=== PATIENT | female | born 1960 | race Caucasian/White ===

== ENCOUNTER → 2016-08-08 | Outpatient (CLI) | payer BC ==
[2016-08-08 17:21] LABS: Anion Gap 12 mmol/L; Blood Urea Nitrogen 13 mg/dL (7-17); Carbon Dioxide 28 mmol/L (22-30); Chloride 100 mmol/L (98-107); Non-African American GFR(MDRD) >60 (>60 ml/min/1.73 sqM); Potassium 4.2 mmol/L (3.5-5.1); Sodium 140 mmol/L (137-145)
== END | disposition home or self-care (01) ==
LOC: LABWHC1 16:26
PROVIDERS: ATTEND Internal Medicine Cardiovascular Disease
DX: I11.0 Hypertensive heart disease with heart failure (principal); I50.32 Chronic diastolic (congestive) heart failure
CPT/HCPCS: 36415; 80051; 82565; 84520

== ENCOUNTER → 2017-07-07 | Outpatient (CLI) | payer BC ==
--- NOTE | 2017-07-09 07:13 | MM ---
Reason for exam: screening (asymptomatic). Last mammogram was performed 2 years and 9 months ago. History: Patient is postmenopausal and is nulliparous. Family history of breast cancer in maternal aunt, breast cancer in cousin, premenopausal breast cancer in mother, and breast cancer in sister. Benign excisional biopsy of the right breast, June 10, 2001. Physical Findings: A clinical breast exam by your physician is recommended on an annual basis and results should be correlated with mammographic findings. MG 3D Screening Mammo W/Cad Bilateral CC and MLO view(s) were taken. Prior study comparison: October 19, 2014, bilateral MG screening mammo w CAD. May 28, 2013, left breast ultrasound work-up. May 19, 2013, bilateral digital screening mammo w/CAD. There are scattered fibroglandular densities. There is a benign oval stable mass in the right breast upper outer quadrant middle depth back to 2014. No suspicious abnormality. No significant changes when compared with prior studies. ASSESSMENT: Benign, BI-RAD 2 RECOMMENDATION: Routine screening mammogram of both breasts in 1 year.
== END | disposition home or self-care (01) ==
LOC: RADMAMWWP 15:52
PROVIDERS: ATTEND Family Medicine
DX: Z12.31 Encounter for screening mammogram for malignant neoplasm of breast (principal)
CPT/HCPCS: 77063; 77067

== ENCOUNTER → 2018-01-29 | Outpatient (CLI) | payer BC ==
--- NOTE | 2018-01-29 10:25 | US ---
EXAMINATION TYPE: US abdomen complete DATE OF EXAM: 01/29/2018 COMPARISON: CT abdomen and pelvis 10/09/2015, US 05/22/2014 CLINICAL HISTORY: R10.32 left lower quadrant pain. EXAM MEASUREMENTS: Liver Length: 14.9 cm Gallbladder Wall: Surgically absent cm CBD: 0.5 cm Spleen: 9.3 cm Right Kidney: 10.9 x 4.8 x 4.7 cm Left Kidney: 9.8 x 6.0 x 5.4 cm Pancreas: Obscured by bowel gas Liver: Heterogeneous, coarse echotexture. Gallbladder: Surgically absent Evidence for sonographic William's sign: No CBD: wnl Spleen: wnl Right Kidney: No hydronephrosis or masses seen Left Kidney: Echogenic foci visualized mid pole measuring 0.4 cm. Nodular contour Upper IVC: wnl Abd Aorta: wnl No abnormality visualized in the LLQ, patient's area of pain Pancreas is obscured by overlying bowel gas on images saved. No aneurysmal change to abdominal aorta is present.Visualized liver is heterogeneously hyperechoic consistent with fatty infiltration as seen on CT. Technologist perez vague 1.1 cm hyperechoic area near gallbladder fossa likely reflecting mor e prominent focal fat. Evaluation for focal masses is suboptimal due to the heterogeneity. No suspici ous solid or cystic masses are clearly seen on images saved. Gallbladder noted surgically absent. Gina pect small calculus upper to mid pole level left kidney 4 mm or smaller in size which appears to vera elate with 2016 CT. IMPRESSION: No significant abnormality is seen at end of study left lower quadrant at site of pain. D iffuse fatty infiltration of liver is redemonstrated. Left-sided nephrolithiasis noted.
== END | disposition home or self-care (01) ==
LOC: RADUSWWP 09:32
PROVIDERS: ATTEND Family Medicine
DX: K76.0 Fatty (change of) liver, not elsewhere classified (principal); N20.0 Calculus of kidney
CPT/HCPCS: 76700

== ENCOUNTER → 2018-02-13 | Outpatient (CLI) | payer BC ==
--- NOTE | 2018-02-13 14:28 | CT ---
EXAMINATION TYPE: CT abdomen pelvis wo con DATE OF EXAM: 02/13/2018 COMPARISON: None HISTORY: Calculus of kidney CT DLP: 923.8 mGycm Examination of the solid and hollow viscera is limited given the lack of contrast. FINDINGS: LUNG BASES: No evidence for nodule. No evidence for infiltrate. LIVER/GB: Cholecystectomy clips are in place. No space-occupying hepatic lesion. PANCREAS: No pancreatic mass identified. No inflammatory process seen. SPLEEN: No evidence for splenomegaly. No intrasplenic lesions seen. ADRENALS: No adrenal nodules identified. No evidence for thickening. KIDNEYS: No evidence for renal mass. 3.8 mm left renal calculus is nonobstructing. No additional calc asia seen. No hydronephrosis. BOWEL: Appendix has a normal appearance. No evidence of bowel obstruction. No inflammatory process. Lymph nodes: No evidence for adenopathy greater than 1 cm. Abdominal aorta: Atheromatous changes seen. No evidence for aneurysm. Genital organs: No significant abnormality. Other: No significant abnormality. IMPRESSION: 1. Nonobstructing left-sided nephrolithiasis.
== END | disposition home or self-care (01) ==
LOC: RADCTMAIN 13:52
PROVIDERS: ATTEND Family Medicine
DX: N20.0 Calculus of kidney (principal)
CPT/HCPCS: 74176

== ENCOUNTER 2022-05-16 10:17 | Emergency (ER) | payer BC ==
[2022-05-16 11:05] VITALS: TEMP 98.6
[2022-05-16] MEDS ORDERED: SODIUM CHLORIDE 0.9% 1,000 ML IV ONE (12:20)
[2022-05-16] MEDS ORDERED: MECLIZINE 12.5 MG TAB PO STA (12:21)
[2022-05-16] MEDS ORDERED: METOCLOPRAMIDE 5 MG/ML 2 ML VIAL IVP STA (12:21)
--- NOTE | 2022-05-16 12:29 | ED ---
General Adult HPI - General Chief complaint: Dizziness Stated complaint: Dizziness Time Seen by Provider: 05/16/22 11:08 Source: patient, family, RN notes reviewed Mode of arrival: wheelchair Limitations: no limitations - History of Present Illness Initial comments: Patient is a pleasant 61-year-old female presenting to the emergency department with concerns for dizziness. Onset of symptoms was yesterday. Patient does have history of similar symptoms previously over has not lasted this long. No headache. No weakness. No confusion. Patient does feel like she is spinning. Symptoms do worsen with upright position and head movements. - Related Data Home Medications Medication Instructions Recorded Confirmed Desvenlafaxine Succinate [Pristiq] 100 mg PO HS 07/26/15 05/16/17 Ergocalciferol [Vitamin D2 50,000 unit PO SA 07/26/15 05/16/17 (DRISDOL)] Eszopiclone [Lunesta] 3 mg PO HS 07/26/15 05/16/17 Desvenlafaxine Succinate [Pristiq] 50 mg PO HS 05/29/16 05/16/17 LORazepam [Ativan] 1 mg PO TID PRN 05/29/16 05/16/17 Pantoprazole Sodium [Protonix] 40 mg PO DAILY 05/29/16 05/16/17 Furosemide [Lasix] 40 mg PO DAILY 05/16/17 05/16/17 Losartan [Cozaar] 50 mg PO DAILY 05/16/17 05/16/17 Potassium Chloride [K-Tab ER] 20 meq PO HS 05/16/17 05/16/17 busPIRone HCl [Buspar] 15 mg PO BID 05/16/17 05/16/17 Previous Rx's Medication Instructions Recorded Metoprolol Tartrate [Lopressor] 25 mg PO BID #60 tab 05/17/17 Metoclopramide HCl [Reglan] 10 mg PO Q6HR PRN #15 tablet 05/16/22 Allergies Allergy/AdvReac Type Severity Reaction Status Date / Time No Known Allergies Allergy Verified 05/16/22 11:05 Review of Systems ROS Statement: Those systems with pertinent positive or pertinent negative responses have been documented in the HPI. ROS Other: All systems not noted in ROS Statement are negative. Constitutional: Denies: fever Eyes: Denies: eye pain ENT: Denies: ear pain Respiratory: Denies: cough Cardiovascular: Denies: chest pain Endocrine: Denies: fatigue Gastrointestinal: Denies: abdominal pain Genitourinary: Denies: dysuria Musculoskeletal: Denies: back pain Skin: Denies: rash Neurological: Reports: as per HPI, vertigo. Denies: headache, weakness, numbness, paresthesias, confusion Past Medical History Past Medical History: Chest Pain / Angina, Heart Failure, Fibromyalgia, GERD/Reflux, Hypertension, Sleep Apnea/CPAP/BIPAP Additional Past Medical History / Comment(s): TRACHIAL BRONCHIAL MALASIA, FATTY LIVER, SHINGLES 2014, ECZEMA, SLEEP APNEA/NO CPAP MACHINE USE LATELY, LOW BACK PAIN WITH BILATERAL SCIATIC NERVE PAIN, INSOMNIA IMPROVED WITH RX. History of Any Multi-Drug Resistant Organisms: None Reported Past Surgical History: Bladder Surgery, Cholecystectomy, Hysterectomy, Orthopedic Surgery Additional Past Surgical History / Comment(s): RT KNEE SCOPE, RT HAND FIRST 2 FINGERS HAD RODS PLACED-BUT PT HAD REACTION TO THE METAL AND RODS WERE REMOVED. BLADDER SUSPENSION. COLONOSCOPY. MULTIPLE BRONCOSCOPIES Past Anesthesia/Blood Transfusion Reactions: Family History of Problems w/ Anesthesia, Motion Sickness, Postoperative Nausea & Vomiting (PONV) Additional Past Anesthesia/Blood Transfusion Reaction / Comment(s): PATIENT AND FAMILY HX PONV WITH ANESTHESIA Past Psychological History: Anxiety, Depression Smoking Status: Never smoker Past Alcohol Use History: Occasional Past Drug Use History: None Reported - Past Family History Mother Family Medical History: Cancer, Diabetes Mellitus, Myocardial Infarction ([place]) Additional Family Medical History / Comment(s): BREAST CA, LEUKEMIA. HEART PROBLEMS- SEVERAL STENTS, HEART ATTACK, Polio Father Family Medical History: Cancer Additional Family Medical History / Comment(s): PACEMAKER. COLON CA, CABG General Exam Limitations: no limitations General appearance: alert, in no apparent distress Head exam: Present: normocephalic Eye exam: Present: normal appearance, PERRL, EOMI ENT exam: Present: normal oropharynx Neck exam: Present: normal inspection Respiratory exam: Present: normal lung sounds bilaterally Cardiovascular Exam: Present: regular rate, normal rhythm GI/Abdominal exam: Present: soft. Absent: tenderness Extremities exam: Present: normal inspection. Absent: pedal edema, calf tende rness Neurological exam: Present: alert, oriented X3, CN II-XII intact. Absent: motor sensory deficit Expanded Neurological exam: Present: protecting the airway Speech: Present: fluid speech Cranial nerves: EOM's Intact: Normal Sensory exam: Upper Extremity Light Touch: Normal, Lower Extremity Light Touch: Normal Motor strength exam: RUE: 5, LUE: 5, RLE: 5, LLE: 5 Eye Response: (4) open spontaneously Motor Response: (6) obeys commands Verbal Response: (5) oriented Psychiatric exam: Present: normal affect, normal mood Skin exam: Present: normal color Course Vital Signs 05/16/22 05/16/22 11:02 12:36 Temperature 98.6 F Pulse Rate 71 99 Respiratory 20 18 Rate Blood Pressure 116/70 132/70 O2 Sat by Pulse 95 98 Oximetry EKG Findings - EKG Results: EKG: interpreted by ERMD (Normal axis. Normal QRS. Nonspecific ST-T.), sinus rhythm Medical Decision Making - Medical Decision Making Patient is requesting discharge home. Patient reevaluated. Patient recommended to wait until she feels better before considering discharge however refuses and wants to go home at this time. Patient is able to get up and ambulate. Patient advised to return if symptoms continue or worsen. - Lab Data Result diagrams: 05/16/22 12:33 05/16/22 12:33 Lab Results 05/16/22 05/16/22 05/16/22 Range/Units 12:33 12:33 12:33 WBC 11.0 H (3.8-10.6) k/uL RBC 4.96 (3.80-5.40) m/uL Hgb 15.9 (11.4-16.0) gm/dL Hct 44.7 (34.0-46.0) % MCV 90.0 (80.0-100.0) fL MCH 32.1 (25.0-35.0) pg MCHC 35.6 (31.0-37.0) g/dL RDW 11.5 (11.5-15.5) % Plt Count 278 (150-450) k/uL MPV 9.6 Neutrophils % 77 % Lymphocytes % 16 % Monocytes % 4 % Eosinophils % 1 % Basophils % 1 % Neutrophils # 8.5 H (1.3-7.7) k/uL Lymphocytes # 1.8 (1.0-4.8) k/uL Monocytes # 0.4 (0-1.0) k/uL Eosinophils # 0.1 (0-0.7) k/uL Basophils # 0.1 (0-0.2) k/uL PT 10.4 (9.0-12.0) sec INR 0.9 (<1.2) APTT 26.3 (22.0-30.0) sec Sodium 139 (137-145) mmol/L Potassium 4.3 (3.5-5.1) mmol/L Chloride 106 (98-107) mmol/L Carbon Dioxide 25 (22-30) mmol/L Anion Gap 8 mmol/L BUN 16 (7-17) mg/dL Creatinine 0.62 (0.52-1.04) mg/dL Est GFR (CKD-EPI)AfAm >90 (>60 ml/min/1.73 sqM) Est GFR (CKD-EPI)NonAf >90 (>60 ml/min/1.73 sqM) Glucose 120 H (74-99) mg/dL Calcium 9.1 (8.4-10.2) mg/dL Total Bilirubin 0.7 (0.2-1.3) mg/dL AST 28 (14-36) U/L ALT 32 (4-34) U/L Alkaline Phosphatase 116 (38-126) U/L Total Protein 7.0 (6.3-8.2) g/dL Albumin 4.4 (3.5-5.0) g/dL - Radiology Data Radiology results: report reviewed (CT brain reported as no acute process) Disposition Clinical Impression: Vertigo Disposition: HOME SELF-CARE Condition: Stable Instructions (If sedation given, give patient instructions): Dizziness (ED) Additional Instructions: Prescription sent to pharmacy. [id number] Antivert as needed. Please do follow-up with your primary care physician in the next day or 2 for recheck. Return for increased dizziness, weakness or confusion, speech problems, diff iculty walking, worsening symptoms or other concerns. Prescriptions: Metoclopramide HCl [Reglan] 10 mg PO Q6HR PRN #15 tablet PRN Reason: Nausea Is patient prescribed a controlled substance at d/c from ED?: No Referrals: Hair Trinh DO [Primary Care Provider] - 1-2 days Time of Disposition: 14:16
[2022-05-16 12:36] VITALS: RESP 18
[2022-05-16 12:53] LABS: Basophils # (A) 0.1 k/uL (0-0.2); Basophils % (A) 1 %; Eosinophils # (A) 0.1 k/uL (0-0.7); Eosinophils % (A) 1 %; HCT 44.7 % (34.0-46.0); HGB 15.9 gm/dL (11.4-16.0); Lymphocytes # (A) 1.8 k/uL (1.0-4.8); Lymphocytes % (A) 16 %; MCH 32.1 pg (25.0-35.0); MCHC 35.6 g/dL (31.0-37.0); Mean Platelet Volume 9.6; Monocytes # (A) 0.4 k/uL (0-1.0); Monocytes % (A) 4 %; Neutrophils # (A) 8.5 k/uL (1.3-7.7); Neutrophils % (A) 77 %; Platelet Count 278 k/uL (150-450); RBC 4.96 m/uL (3.80-5.40); RDW 11.5 % (11.5-15.5)
--- NOTE | 2022-05-16 13:16 | CT ---
EXAMINATION TYPE: CT brain wo con CT DLP: 1153.3 mGycm, Automated exposure control for dose reduction was used. DATE OF EXAM: 05/16/2022 12:53 PM COMPARISON: None. CLINICAL INDICATION:Female, 61 years old with history of vertigo, TECHNIQUE: Brain: Axial CT images of the brain were obtained with coronal and sagittal reformats created and rev iewed. Contrast used: None. Oral contrast used: None. FINDINGS: Brain: Extra-axial spaces: No abnormal extra-axial fluid collections. Ventricular system: Within normal limits Cerebral parenchyma: No acute intraparenchymal hemorrhage or mass effect. The hall-white junction is well differentiated. Cerebellum: Unremarkable. Mass effect: No evidence of midline shift. Intracranial vasculature: unremarkable Soft tissues: Normal. Calvarium/osseous structures: No depressed skull fracture. Paranasal sinuses and mastoid air cells: Mild scattered paranasal sinus disease. Visualized orbits: Orbital contents are intact. IMPRESSION: No acute intracranial process.
[2022-05-16 13:19] LABS: ALT 32 U/L (4-34); AST 28 U/L (14-36); African American GFR (CKD) >90 (>60 ml/min/1.73 sqM); Albumin 4.4 g/dL (3.5-5.0); Alkaline Phosphatase 116 U/L (38-126); Anion Gap 8 mmol/L; Blood Urea Nitrogen 16 mg/dL (7-17); Calcium 9.1 mg/dL (8.4-10.2); Carbon Dioxide 25 mmol/L (22-30); Chloride 106 mmol/L (98-107); Glucose 120 mg/dL (74-99); Non-African American GFR(CKD) >90 (>60 ml/min/1.73 sqM); Potassium 4.3 mmol/L (3.5-5.1); Sodium 139 mmol/L (137-145); Total Bilirubin 0.7 mg/dL (0.2-1.3)
[2022-05-16 13:28] LABS: INR 0.9 (<1.2)
[2022-05-16 13:29] LABS: Partial Thromboplastin Time 26.3 sec (22.0-30.0); Prothrombin Time 10.4 sec (9.0-12.0)
[2022-05-16] MEDS ORDERED: SCOPOLAMINE 1 MG/72 HR PATCH TRANSDERM STA (13:51)
[2022-05-16] MEDS ORDERED: diazePAM 2 MG TAB PO STA (14:14)
[2022-05-16 14:25] VITALS: BP 148/80; PULSE 85
== END 2022-05-16 14:44 | disposition home or self-care (01) ==
LOC: EC 10:17
DX: R42 Dizziness and giddiness (principal); I11.0 Hypertensive heart disease with heart failure; I50.9 Heart failure, unspecified; G47.30 Sleep apnea, unspecified; F41.9 Anxiety disorder, unspecified; F32.A Depression, unspecified
CPT/HCPCS: 36415; 80053; 85025; 85610; 85730; 70450; 99284; 96374; 96361 ×2; J2765

== ENCOUNTER 2022-05-22 15:19 | Observation (INO) | payer BC ==
[2022-05-22 17:36] LABS: Basophils # (A) 0.1 k/uL (0-0.2); Basophils % (A) 1 %; Eosinophils # (A) 0.2 k/uL (0-0.7); Eosinophils % (A) 2 %; HCT 43.2 % (34.0-46.0); HGB 15.3 gm/dL (11.4-16.0); Lymphocytes # (A) 2.9 k/uL (1.0-4.8); Lymphocytes % (A) 24 %; MCH 31.7 pg (25.0-35.0); MCHC 35.5 g/dL (31.0-37.0); MCV 89.2 fL (80.0-100.0); Mean Platelet Volume 9.6; Monocytes # (A) 0.6 k/uL (0-1.0); Monocytes % (A) 5 %; Neutrophils % (A) 67 %; Platelet Count 300 k/uL (150-450); RBC 4.84 m/uL (3.80-5.40); RDW 11.4 % (11.5-15.5)
[2022-05-22 17:44] LABS: Prothrombin Time 10.3 sec (9.0-12.0)
[2022-05-22 17:46] LABS: Albumin 4.6 g/dL (3.5-5.0); Calcium 8.9 mg/dL (8.4-10.2); Total Bilirubin 0.5 mg/dL (0.2-1.3); Total Protein 7.3 g/dL (6.3-8.2)
--- NOTE | 2022-05-22 21:58 | ED ---
General Adult HPI - General Chief complaint: Dizziness Stated complaint: Dizziness Time Seen by Provider: 05/22/22 21:15 Source: patient Mode of arrival: ambulatory Limitations: no limitations - History of Present Illness Initial comments: 61-year-old female with past medical history of congestive heart failure, hypertension who presents to the emergency department with persistent dizziness. Patient was seen in the emergency department on the for vertigo. It was positional in nature. CT of her head was performed. She was prescribed meclizine and discharged home. She states that she followed up with a chiropractor today who noted that she had a pupillary discrepancy and recommended that she come back into the hospital. He did not perform any manipulation of her neck. She admits that she has had some blurred vision. Symptoms are worse with light. She had a headache when it all started however denies any current headache. No head trauma. No history of stroke. States that the meclizine is not doing much for her symptoms. The symptoms have gradually improved however are still present. Denies any weakness in her extremities. No chest pain. No other alleviating, precipitating or modifying factors - Related Data Home Medications Medication Instructions Recorded Confirmed Desvenlafaxine Succinate [Pristiq] 100 mg PO HS 07/26/15 05/23/22 Eszopiclone [Lunesta] 3 mg PO HS 07/26/15 05/23/22 Furosemide [Lasix] 40 mg PO DAILY 05/16/17 05/23/22 Potassium Chloride [K-Tab ER] 10 meq PO HS 05/16/17 05/23/22 Albuterol Sulfate [Albuterol 2 puff PO RT-Q6H PRN 05/23/22 05/23/22 Sulfate Hfa] Beclomethasone Dip 80 Mcg/Puff 2 puff INHALATION RT-BID 05/23/22 05/23/22 [Qvar 80 mcg] Ergocalciferol [Vitamin D2 (1250 1,250 mcg PO SA 05/23/22 05/23/22 Mcg = 98037 Iu)] Losartan Potassium [Cozaar] 100 mg PO HS 05/23/22 05/23/22 Previous Rx's Medication Instructions Recorded Metoprolol Tartrate [Lopressor] 25 mg PO BID #60 tab 05/17/17 Aspirin 81 mg PO DAILY #30 tab 05/23/22 Atorvastatin [Lipitor] 40 mg PO DAILY #30 tab 05/23/22 Meclizine [Antivert] 25 mg PO TID PRN #30 tab 05/23/22 Pantoprazole [Protonix] 40 mg PO AC-BRKFST #30 tab 05/23/22 methylPREDNISolone [Medrol Dose 0 mg PO DIRECTED #1 packet 05/23/22 Pack] Allergies Allergy/AdvReac Type Severity Reaction Status Date / Time No Known Allergies Allergy Verified 05/23/22 06:59 Review of Systems ROS Statement: Those systems with pertinent positive or pertinent negative responses have been documented in the HPI. ROS Other: All systems not noted in ROS Statement are negative. Past Medical History Past Medical History: Chest Pain / Angina, Heart Failure, Fibromyalgia, GERD/Reflux, Hypertension, Sleep Apnea/CPAP/BIPAP Additional Past Medical History / Comment(s): TRACHIAL BRONCHIAL MALASIA, FATTY LIVER, SHINGLES 2014, ECZEMA, SLEEP APNEA/NO CPAP MACHINE USE LATELY, LOW BACK PAIN WITH BILATERAL SCIATIC NERVE PAIN, INSOMNIA IMPROVED WITH RX. History of Any Multi-Drug Resistant Organisms: None Reported Past Surgical History: Bladder Surgery, Cholecystectomy, Hysterectomy, Orthopedic Surgery Additional Past Surgical History / Comment(s): RT KNEE SCOPE, RT HAND FIRST 2 FINGERS HAD RODS PLACED-BUT PT HAD REACTION TO THE METAL AND RODS WERE REMOVED. BLADDER SUSPENSION. COLONOSCOPY. MULTIPLE BRONCOSCOPIES Past Anesthesia/Blood Transfusion Reactions: Family History of Problems w/ Anesthesia, Motion Sickness, Postoperative Nausea & Vomiting (PONV) Additional Past Anesthesia/Blood Transfusion Reaction / Comment(s): PATIENT AND FAMILY HX PONV WITH ANESTHESIA Past Psychological History: Anxiety, Depression Smoking Status: Never smoker Past Alcohol Use History: Occasional Past Drug Use History: None Reported - Past Family History Mother Family Medical History: Cancer, Diabetes Mellitus, Myocardial Infarction ([place]) Additional Family Medical History / Comment(s): BREAST CA, LEUKEMIA. HEART PROBLEMS- SEVERAL STENTS, HEART ATTACK, Polio Father Family Medical History: Cancer Additional Family Medical History / Comment(s): PACEMAKER. COLON CA, CABG General Exam Limitations: no limitations General appearance: alert, in no apparent distress Head exam: Present: atraumatic, normocephalic, normal inspection Eye exam: Present: EOMI, other (left pupil larger than the right. left pupil does not constrict to consensual light). Absent: scleral icterus, conjunctival injection, periorbital swelling ENT exam: Present: normal exam, mucous membranes moist Neck exam: Present: normal inspection. Absent: tenderness, meningismus, lymphadenopathy Respiratory exam: Present: normal lung sounds bilaterally. Absent: respiratory distress, wheezes, rales, rhonchi, stridor Cardiovascular Exam: Present: regular rate, normal rhythm, normal heart sounds. Absent: systolic murmur, diastolic murmur, rubs, gallop, clicks GI/Abdominal exam: Present: soft, normal bowel sounds. Absent: distended, tenderness, guarding, rebound, rigid Extremities exam: Present: normal inspection, full ROM, normal capillary refill. Absent: tenderness, pedal edema, joint swelling, calf tenderness Back exam: Present: normal inspection Neurological exam: Present: alert, oriented X3, CN II-XII intact Psychiatric exam: Present: normal affect, normal mood Skin exam: Present: warm, dry, intact, normal color. Absent: rash Course Vital Signs 05/22/22 05/23/22 16:20 09:06 Temperature 97.7 F 98.7 F Pulse Rate 73 Pulse Rate [ 84 Left Brachial] Respiratory 20 18 Rate Blood Pressure 140/78 Blood Pressure 135/76 [Left Arm] O2 Sat by Pulse 97 98 Oximetry EKG Findings - EKG Comments: EKG Findings:: EKG done straight sinus rhythm rate of 65. IN interval 154. QRS 97. QTC 426. No acute ST segment elevations or depressions Medical Decision Making - Medical Decision Making Upon arrival patient was placed in room 2. A thorough history and physical exam was performed. Laboratory studies were conducted. She was given 5 g of Valium for her symptoms and sent over for CT angiography. Laboratory studies are reviewed by myself. White count of 12. CT angiography is interpreted by myself and read by the radiologist as negative of the neck. Diminutive A1 segment of the left anterior cerebral artery that is probably do well mental. Otherwise negative CT angiography of the brain. Also discussed the patient. I also discussed the case with Dr. Silverio. He feels that the patient should be admitted for neuro evaluation. Recommended a baby aspirin. I spoke with the patient in regards to this and she was agreeable to this plan. She is currently awaiting a bed on the floor - Lab Data Result diagrams: 05/22/22 17:21 05/22/22 17:21 Lab Results 05/22/22 05/22/22 05/22/22 Range/Units 17:21 17:21 17:21 WBC 12.0 H (3.8-10.6) k/uL RBC 4.84 (3.80-5.40) m/uL Hgb 15.3 (11.4-16.0) gm/dL Hct 43.2 (34.0-46.0) % MCV 89.2 (80.0-100.0) fL MCH 31.7 (25.0-35.0) pg MCHC 35.5 (31.0-37.0) g/dL RDW 11.4 L (11.5-15.5) % Plt Count 300 (150-450) k/uL MPV 9.6 Neutrophils % 67 % Lymphocytes % 24 % Monocytes % 5 % Eosinophils % 2 % Basophils % 1 % Neutrophils # 8.0 H (1.3-7.7) k/uL Lymphocytes # 2.9 (1.0-4.8) k/uL Monocytes # 0.6 (0-1.0) k/uL Eosinophils # 0.2 (0-0.7) k/uL Basophils # 0.1 (0-0.2) k/uL PT 10.3 (9.0-12.0) sec INR 1.0 (<1.2) Sodium 138 (137-145) mmol/L Potassium 4.0 (3.5-5.1) mmol/L Chloride 102 (98-107) mmol/L Carbon Dioxide 28 (22-30) mmol/L Anion Gap 8 mmol/L BUN 14 (7-17) mg/dL Creatinine 0.83 (0.52-1.04) mg/dL Est GFR (CKD-EPI)AfAm 89 (>60 ml/min/1.73 sqM) Est GFR (CKD-EPI)NonAf 77 (>60 ml/min/1.73 sqM) Glucose 102 H (74-99) mg/dL Calcium 8.9 (8.4-10.2) mg/dL Total Bilirubin 0.5 (0.2-1.3) mg/dL AST 24 (14-36) U/L ALT 28 (4-34) U/L Alkaline Phosphatase 119 (38-126) U/L Troponin I (0.000-0.034) ng/mL Total Protein 7.3 (6.3-8.2) g/dL Albumin 4.6 (3.5-5.0) g/dL Triglycerides (0.00-149.00) mg/dL Cholesterol (0.00-200.00) mg/dL LDL Cholesterol, Calc (0.0-131.0) mg/dL VLDL Cholesterol, Calc (5.00-40.00) mg/dL HDL Cholesterol (40.00-60.00) mg/dL Cholesterol/HDL Ratio Ratio Vitamin B12 (200.0-944.0) pg/mL Folate (4.40-31.00) ng/mL TSH (0.350-5.500) uIU/mL 05/22/22 05/22/22 05/22/22 Range/Units 17:21 17:21 17:21 WBC (3.8-10.6) k/uL RBC (3.80-5.40) m/uL Hgb (11.4-16.0) gm/dL Hct (34.0-46.0) % MCV (80.0-100.0) fL MCH (25.0-35.0) pg MCHC (31.0-37.0) g/dL RDW (11.5-15.5) % Plt Count (150-450) k/uL MPV Neutrophils % % Lymphocytes % % Monocytes % % Eosinophils % % Basophils % % Neutrophils # (1.3-7.7) k/uL Lymphocytes # (1.0-4.8) k/uL Monocytes # (0-1.0) k/uL Eosinophils # (0-0.7) k/uL Basophils # (0-0.2) k/uL PT (9.0-12.0) sec INR (<1.2) Sodium (137-145) mmol/L Potassium (3.5-5.1) mmol/L Chloride (98-107) mmol/L Carbon Dioxide (22-30) mmol/L Anion Gap mmol/L BUN (7-17) mg/dL Creatinine (0.52-1.04) mg/dL Est GFR (CKD-EPI)AfAm (>60 ml/min/1.73 sqM) Est GFR (CKD-EPI)NonAf (>60 ml/min/1.73 sqM) Glucose (74-99) mg/dL Calcium (8.4-10.2) mg/dL Total Bilirubin (0.2-1.3) mg/dL AST (14-36) U/L ALT (4-34) U/L Alkaline Phosphatase (38-126) U/L Troponin I <0.012 (0.000-0.034) ng/mL Total Protein (6.3-8.2) g/dL Albumin (3.5-5.0) g/dL Triglycerides 97.40 (0.00-149.00) mg/dL Cholesterol 208.00 H (0.00-200.00) mg/dL LDL Cholesterol, Calc 135.4 H (0.0-131.0) mg/dL VLDL Cholesterol, Calc 19.48 (5.00-40.00) mg/dL HDL Cholesterol 53.10 (40.00-60.00) mg/dL Cholesterol/HDL Ratio 3.92 Ratio Vitamin B12 529.0 (200.0-944.0) pg/mL Folate (4.40-31.00) ng/mL TSH 1.360 (0.350-5.500) uIU/mL 05/22/22 Range/Units 17:21 WBC (3.8-10.6) k/uL RBC (3.80-5.40) m/uL Hgb (11.4-16.0) gm/dL Hct (34.0-46.0) % MCV (80.0-100.0) fL MCH (25.0-35.0) pg MCHC (31.0-37.0) g/dL RDW (11.5-15.5) % Plt Count (150-450) k/uL MPV Neutrophils % % Lymphocytes % % Monocytes % % Eosinophils % % Basophils % % Neutrophils # (1.3-7.7) k/uL Lymphocytes # (1.0-4.8) k/uL Monocytes # (0-1.0) k/uL Eosinophils # (0-0.7) k/uL Basophils # (0-0.2) k/uL PT (9.0-12.0) sec INR (<1.2) Sodium (137-145) mmol/L Potassium (3.5-5.1) mmol/L Chloride (98-107) mmol/L Carbon Dioxide (22-30) mmol/L Anion Gap mmol/L BUN (7-17) mg/dL Creatinine (0.52-1.04) mg/dL Est GFR (CKD-EPI)AfAm (>60 ml/min/1.73 sqM) Est GFR (CKD-EPI)NonAf (>60 ml/min/1.73 sqM) Glucose (74-99) mg/dL Calcium (8.4-10.2) mg/dL Total Bilirubin (0.2-1.3) mg/dL AST (14-36) U/L ALT (4-34) U/L Alkaline Phosphatase (38-126) U/L Troponin I (0.000-0.034) ng/mL Total Protein (6.3-8.2) g/dL Albumin (3.5-5.0) g/dL Triglycerides (0.00-149.00) mg/dL Cholesterol (0.00-200.00) mg/dL LDL Cholesterol, Calc (0.0-131.0) mg/dL VLDL Cholesterol, Calc (5.00-40.00) mg/dL HDL Cholesterol (40.00-60.00) mg/dL Cholesterol/HDL Ratio Ratio Vitamin B12 (200.0-944.0) pg/mL Folate 21.30 (4.40-31.00) ng/mL TSH (0.350-5.500) uIU/mL Disposition Clinical Impression: Vertigo, Pupillary abnormality Disposition: ADMITTED IP TO THIS [facility] Condition: Stable Is patient prescribed a controlled substance at d/c from ED?: No Time of Disposition: 00:53 Decision to Admit Reason: Admit from EC Decision Date: 05/23/22 Decision Time: 00:53
--- NOTE | 2022-05-22 23:47 | CT ---
EXAMINATION TYPE: CT angio head neck DATE OF EXAM: 05/22/2022 COMPARISON: None HISTORY: Vertigo CT DLP: 511.6 mGycm Automated exposure control for dose reduction was used. CONTRAST: Performed with IV Contrast, patient injected with 65 mL of Isovue 370. Images obtained from the aortic arch to the vertex of the brain with the IV contrast. There are Three -D postprocessed images. There is normal branching pattern of the great vessels on the aortic arch. There is bilateral arteria l flow in the subclavian arteries. There is arterial flow in the common internal and external carotid arteries bilaterally. There is fairly wide patency of the carotid artery bifurcations bilaterally. T here is arterial flow in both vertebral arteries. There is arterial flow in the vertebral basilar art blake system. No evidence of carotid or vertebral artery aneurysm or dissection. No evidence of hemodyn amic stenosis in the neck. There is arterial flow in the anterior middle and posterior cerebral arteries bilaterally. No mass ef fect. There is a diminutive A1 segment of the left anterior cerebral artery. Left anterior cerebral a rtery probably fills significantly through the anterior communicating artery from the right side. The re is no evidence of intracranial aneurysm or neovascularity. There is normal enhancement of the veno us sinuses. IMPRESSION: Negative CT angiogram of the neck. There is diminutive A1 segment of the left anterior cerebral arter y that is probably developmental. Otherwise negative CT angiograms of the brain.
[2022-05-23] MEDS ORDERED: NALOXONE 0.4 MG/ML 1 ML VIAL IV PRN (00:55)
[2022-05-23] MEDS ORDERED: ASPIRIN 81 MG PO STA (01:04)
[2022-05-23] MEDS ORDERED: MELATONIN 3 MG TABLET PO STA (01:55)
--- NOTE | 2022-05-23 04:47 | P.HPIM ---
History of Present Illness H&P Date: 05/23/22 Chief Complaint: dizziness 61 year old female with hypertension patient comes in for evaluation of ongoing dizziness, she presented to the hospital for similar compliant few days ago , and was discharged on antivert and reglan after having negative workup she returns today for evaluation after her chiropractor noticed unequal pupils. patient reports associated bilateral hand tingling related to which side she sleeps on, but denies any changes in her speech, vision, hearing, denies any focal neurological deficits like weakness or numbness she denies tobacco smoking or history of stroke, denies any recent viral illness or ongoing URI symptoms , denies any tinnitus , however, she noticed frequent episodes of dizzy spells, and makes it challenging to walk and shower blood work unremarkable CTA negative showed developmental diminutive A1 segment of the anterior cerebral art, neurology recommended admission for MRI Review of Systems Pertinent positives as noted in HPI. All other systems were reviewed and are negative Past Medical History Past Medical History: Chest Pain / Angina, Heart Failure, Fibromyalgia, GERD/Reflux, Hypertension, Sleep Apnea/CPAP/BIPAP Additional Past Medical History / Comment(s): TRACHIAL BRONCHIAL MALASIA, FATTY LIVER, SHINGLES 2014, ECZEMA, SLEEP APNEA/NO CPAP MACHINE USE LATELY, LOW BACK PAIN WITH BILATERAL SCIATIC NERVE PAIN, INSOMNIA IMPROVED WITH RX. History of Any Multi-Drug Resistant Organisms: None Reported Past Surgical History: Bladder Surgery, Cholecystectomy, Hysterectomy, Orthopedic Surgery Additional Past Surgical History / Comment(s): RT KNEE SCOPE, RT HAND FIRST 2 FINGERS HAD RODS PLACED-BUT PT HAD REACTION TO THE METAL AND RODS WERE REMOVED. BLADDER SUSPENSION. COLONOSCOPY. MULTIPLE BRONCOSCOPIES Past Anesthesia/Blood Transfusion Reactions: Family History of Problems w/ Anesthesia, Motion Sickness, Postoperative Nausea & Vomiting (PONV) Additional Past Anesthesia/Blood Transfusion Reaction / Comment(s): PATIENT AND FAMILY HX PONV WITH ANESTHESIA Past Psychological History: Anxiety, Depression Smoking Status: Never smoker Past Alcohol Use History: Occasional Past Drug Use History: None Reported - Past Family History Mother Family Medical History: Cancer, Diabetes Mellitus, Myocardial Infarction ([place]) Additional Family Medical History / Comment(s): BREAST CA, LEUKEMIA. HEART PROBLEMS- SEVERAL STENTS, HEART ATTACK, Polio Father Family Medical History: Cancer Additional Family Medical History / Comment(s): PACEMAKER. COLON CA, CABG Medications and Allergies Home Medications Medication Instructions Recorded Confirmed Type Desvenlafaxine Succinate [Pristiq] 100 mg PO HS 07/26/15 05/16/17 History Ergocalciferol [Vitamin D2 50,000 unit PO SA 07/26/15 05/16/17 History (DRISDOL)] Eszopiclone [Lunesta] 3 mg PO HS 07/26/15 05/16/17 History Desvenlafaxine Succinate [Pristiq] 50 mg PO HS 05/29/16 05/16/17 History LORazepam [Ativan] 1 mg PO TID PRN 05/29/16 05/16/17 History Pantoprazole Sodium [Protonix] 40 mg PO DAILY 05/29/16 05/16/17 History Furosemide [Lasix] 40 mg PO DAILY 05/16/17 05/16/17 History Losartan [Cozaar] 50 mg PO DAILY 05/16/17 05/16/17 History Potassium Chloride [K-Tab ER] 20 meq PO HS 05/16/17 05/16/17 History busPIRone HCl [Buspar] 15 mg PO BID 05/16/17 05/16/17 History Metoprolol Tartrate [Lopressor] 25 mg PO BID #60 tab 05/17/17 Rx Metoclopramide HCl [Reglan] 10 mg PO Q6HR PRN #15 tablet 05/16/22 Rx Allergies Allergy/AdvReac Type Severity Reaction Status Date / Time No Known Allergies Allergy Verified 05/22/22 16:24 Physical Exam Vitals: Vital Signs Temp Pulse Resp BP Pulse Ox 05/22/22 16:20 97.7 F 73 20 140/78 97 Intake and Output 05/22/22 05/22/22 05/23/22 14:59 22:59 06:59 Other: Weight 108.862 kg Constitutional: No acute distress, conversant, pleasant Eyes: Anicteric sclerae, moist conjunctiva, Pupils equal round reactive to light ENMT: NC/AT Oropharynx clear, no erythema, or exudates Neck: Supple, no masses, or JVD No carotid bruits No thyromegaly Lungs: Clear to auscultation Clear to percussion Normal respiratory effort, no accessory muscle use Cardiovascular: Heart regular in rate and rhythm, No murmurs, gallops, or rubs No peripheral edema Abdominal: Soft Nontender, no guarding, rebound or rigidity Abdomen moving with respiration Normoactive bowel sounds No hepatomegaly, No splenomegaly No palpable mass No abdominal wall hernia noted Skin: Normal temperature, tone, texture, turgor No induration No subcutaneous nodules No rash, lesions No ulcers Extremities: No digital cyanosis No clubbing Pedal pulses intact and symmetrical Radial pulses intact and symmetrical No calf tenderness Psychiatric: Alert and oriented to person, place and time Appropriate affect fair judgement Neuro Muscles Strength 5/5 in all 4 extremities Sensation to light touch grossly present throughout Cranial nerves II-XII grossly intact finger nose test intact no nystagmus Lymphatics: no palpable cervical or supraclavicular lymph nodes Results CBC & Chem 7: 05/22/22 17:21 05/22/22 17:21 Labs: Abnormal Lab Results - Last 24 Hours (Table) 05/22/22 05/22/22 Range/Units 17:21 17:21 WBC 12.0 H (3.8-10.6) k/uL RDW 11.4 L (11.5-15.5) % Neutrophils # 8.0 H (1.3-7.7) k/uL Glucose 102 H (74-99) mg/dL Assessment and Plan Assessment: dizziness with vertigo and difficulty ambulating rule out stroke CTA negative for acute pathology , possible developmental diminutive A1 segment of the anterior cerebral artery check MRI neuro checks ASA, statin fall precaution s classroom monitor PT/OT neurology consult hypertension controlled resume home meds losartan and metoprolol full code DVT PPX mechanical
[2022-05-23] MEDS ORDERED: PANTOPRAZOLE 40 MG TABLET PO SCH (07:30)
[2022-05-23] MEDS ORDERED: HEPARIN SODIUM,PORCINE/PF 5,000 UNIT/0.5 ML SYRINGE SQ SCH (08:00)
[2022-05-23] MEDS ORDERED: ATORVASTATIN 40 MG TAB PO SCH (09:00)
[2022-05-23] MEDS ORDERED: METOPROLOL TARTRATE 25 MG TAB PO SCH (09:00)
[2022-05-23] MEDS ORDERED: ASPIRIN 81 MG PO SCH (09:00)
[2022-05-23] MEDS ORDERED: LOSARTAN 50 MG TAB PO SCH (09:00)
[2022-05-23 09:07] VITALS: BP 135/76; PULSE 84; RESP 18; TEMP 98.7
[2022-05-23 10:19] LABS: Chol/HDL Ratio 3.92 Ratio; LDL Cholesterol,Calculated 135.4 mg/dL (0.0-131.0); VLDL Calculation 19.48 mg/dL (5.00-40.00)
--- NOTE | 2022-05-23 12:52 | P.CNNES ---
History of Present Illness Consult date: 05/23/22 Requesting physician: Carol Amin Reason for Consult: Vertigo, pupillary abnormality History of Present Illness: Patient is a 61-year-old female came to the hospital yesterday at 3:19 PM for dizziness. Patient states that her symptoms started on 05/15/2022, when she woke up with dizziness. She felt the room was spinning. She could hardly walk. She came to ER, underwent CT of the head, was normal, and was released home. Patient's symptoms have been persistent since then. The symptoms are worse if she lays back, better when she lays on the side. If she is laying still, she is okay, but when she turns her head or body, symptoms comes back. Patient wanted to see Dr. Earl ENT specialist, but appointment was not until June 2022. She went to her chiropractor, who examined her and noticed that she had some unequal pupils, therefore he did not do any adjustment, and she was referred to the ER. This was also noticed by ED physician Dr. Carol Amin, therefore patient was admitted for observation. Patient says that she has not had any neck adjustment for more than 1-1/2 years. She denies any head trauma, recent flu, or upper respiratory infection. Patient did receive a flu shot 1 week prior to onset of symptoms on 05/15/2022. She denies any tinnitus, hearing loss, occasionally feels pressure in the left ear. Patient denies any slurred speech, facial droop, any focal numbness tingling or weakness. She does feel cloudy/blurred vision for last couple days. Patient states that about 4 years ago, she had exactly similar vertigo when she stayed in bed for one day and the symptoms went away by the next day. Since then she had very sporadic, rare very brief dizzy spells, which does not last long. Vital signs arrival blood pressure 140/78, pulse is 73 temperature 97.7. Blood test shows a very busy 12.0 15.3, platelets 300. PT/PTT normal. Chem-20 is normal. Troponin negative. TSH is normal. EKG shows sinus rhythm. CTA of head and neck was reported as normal. I personally reviewed CTA of head and neck, Adalgisa also appears probably normal. There is diminutive A1 segment of the left anterior cerebral artery that is probably developmental. Otherwise negative CTA of the brain. Patient had a CT head on 05/16/2022, which is normal. I personally reviewed CT head, agree with the findings. Visualized paranasal sinuses and external auditory canals are clear. Home medication includes Lunesta, Pristiq, potassium, Lasix 40 mg, metoprolol 25 mg twice a day, Reglan, losartan and vitamin D. Patient has hypertension, denies diabetes. She is a nonsmoker, drinks alcohol socially. Patient is a retired schoolteacher. Review of Systems Constitutional: Denies chills, Denies fever Eyes: denies blurred vision, denies pain Ears: deny: decreased hearing, earache, tinnitus Ears, nose, mouth and throat: Denies headache, Denies sore throat Cardiovascular: Denies chest pain, Denies shortness of breath Respiratory: Denies cough Gastrointestinal: Denies abdominal pain, Denies diarrhea, Denies nausea, Denies vomiting Musculoskeletal: Denies morning stiffness, Denies myalgias Integumentary: Denies pruritus, Denies rash Neurological: Reports as per HPI Psychiatric: Denies anxiety, Denies depression Endocrine: Denies fatigue, Denies weight change Hematologic/Lymphatic: Denies easy bruising Past Medical History Past Medical History: Chest Pain / Angina, Heart Failure, Fibromyalgia, GERD/R eflux, Hypertension, Sleep Apnea/CPAP/BIPAP Additional Past Medical History / Comment(s): TRACHIAL BRONCHIAL MALASIA, FATTY LIVER, SHINGLES 2014, ECZEMA, SLEEP APNEA/NO CPAP MACHINE USE LATELY, LOW BACK PAIN WITH BILATERAL SCIATIC NERVE PAIN, INSOMNIA IMPROVED WITH RX. History of Any Multi-Drug Resistant Organisms: None Reported Past Surgical History: Bladder Surgery, Cholecystectomy, Hysterectomy, Orthopedic Surgery Additional Past Surgical History / Comment(s): RT KNEE SCOPE, RT HAND FIRST 2 F INGERS HAD RODS PLACED-BUT PT HAD REACTION TO THE METAL AND RODS WERE REMOVED. BLADDER SUSPENSION. COLONOSCOPY. MULTIPLE BRONCOSCOPIES Past Anesthesia/Blood Transfusion Reactions: Family History of Problems w/ Anesthesia, Motion Sickness, Postoperative Nausea & Vomiting (PONV) Additional Past Anesthesia/Blood Transfusion Reaction / Comment(s): PATIENT AND FAMILY HX PONV WITH ANESTHESIA Past Psychological History: Anxiety, Depression Additional Psychological History / Comment(s): PT RESIDES WITH HER SPOUSE AND 4 CHILDREN. SHE IS INDEPENDENT. 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 PT STATED FEELS W ELL MAINTAINED ON MEDS,NO THOUGHTS OF HARMING SELF,NO SUICIDAL THOUGHTS. Smoking Status: Never smoker Past Alcohol Use History: Occasional Past Drug Use History: None Reported - Past Family History Mother Family Medical History: Cancer, Diabetes Mellitus, Myocardial Infarction ([place]) Additional Family Medical History / Comment(s): BREAST CA, LEUKEMIA. HEART PROBLEMS- SEVERAL STENTS, HEART ATTACK, Polio Father Family Medical History: Cancer Additional Family Medical History / Comment(s): PACEMAKER. COLON CA, CABG Medications and Allergies Home Medications Medication Instructions Recorded Confirmed Type Desvenlafaxine Succinate [Pristiq] 100 mg PO HS 07/26/15 05/23/22 History Eszopiclone [Lunesta] 3 mg PO HS 07/26/15 05/23/22 History Furosemide [Lasix] 40 mg PO DAILY 05/16/17 05/23/22 History Potassium Chloride [K-Tab ER] 10 meq PO HS 05/16/17 05/23/22 History Metoprolol Tartrate [Lopressor] 25 mg PO BID #60 tab 05/17/17 05/23/22 Rx Albuterol Sulfate [Albuterol 2 puff PO RT-Q6H PRN 05/23/22 05/23/22 History Sulfate Hfa] Aspirin 81 mg PO DAILY #30 tab 05/23/22 Rx Atorvastatin [Lipitor] 40 mg PO DAILY #30 tab 05/23/22 Rx Beclomethasone Dip 80 Mcg/Puff 2 puff INHALATION RT-BID 05/23/22 05/23/22 Histo ry [Qvar 80 mcg] Ergocalciferol [Vitamin D2 (1250 1,250 mcg PO SA 05/23/22 05/23/22 History Mcg = 90414 Iu)] Losartan Potassium [Cozaar] 100 mg PO HS 05/23/22 05/23/22 History Meclizine [Antivert] 25 mg PO TID PRN #30 tab 05/23/22 Rx Pantoprazole [Protonix] 40 mg PO AC-BRKFST #30 tab 05/23/22 Rx methylPREDNISolone [Medrol Dose 0 mg PO DIRECTED #1 packet 05/23/22 Rx Pack] Allergies Allergy/AdvReac Type Severity Reaction Status Date / Time No Known Allergies Allergy Verified 05/23/22 06:59 Physical Examination - Vital Signs Vital Signs: Vital Signs Temp Pulse Pulse Resp BP BP Pulse Ox 05/23/22 09:06 98.7 F 84 18 135/76 98 05/22/22 16:20 97.7 F 73 20 140/78 97 Intake and Output 05/22/22 05/23/22 05/23/22 22:59 06:59 14:59 Other: Voiding Method Toilet Weight 108.862 kg 108.862 kg Patient is a middle aged female, very pleasant in no acute distress. Patient is alert awake oriented to time place and person. Speech and language functions are normal. Patient can name and repeat very well. No aphasia or dysarthria. Attention, concentration and fund of knowledge is adequate. On cranial nerve examination, pupils are equal, round and reacting to light, visual tian are full on confrontation, with no neglect on double simultaneous stimulation. Extraocular muscles are intact with no nystagmus. Face is symmetric, tongue protrudes to the midline. Palatal elevation and sensation normal, hearing and shoulder shrug normal, facial sensation normal. Otologic e xamination revealed completely normal appearing eardrums bilaterally. On muscle strength testing, there is no pronator drift and the strength is normal in arms and legs distally and proximally. Deep tendon reflexes are symmetric biceps 2, brachioradialis 2, knees 2, ankles 1 and plantars downgoing bilaterally. Sensory to touch is equal with no neglect on double simultaneous stimulation. Cerebellar function showed no ataxia for [id number] testing. No dysdiadochokinesia. No ataxia for [id number] testing on either side. Tone and bulk of muscles normal. Gait deferred.. On general examination, there is no carotid bruit or murmur, S1-S2 audible. Chest is clear on consultation. Abdomen is soft nontender. No organomegaly, bowel sounds present. Peripheral pulses are present. No edema. Patient did become very dizzy, spinning, particularly when turning to the right. Also mild dizziness when turning head upward's. Results - Laboratory Findings CBC and BMP: 05/22/22 17:21 05/22/22 17:21 Abnormal Lab Findings: Abnormal Labs 05/22/22 05/22/22 05/22/22 17:21 17:21 17:21 WBC 12.0 H RDW 11.4 L Neutrophils # 8.0 H Glucose 102 H Cholesterol 208.00 H LDL Cholesterol, Calc 135.4 H Assessment and Plan Assessment: * New onset vertigo mainly with changing head or body position since 05/15/2022, probable labyrinthitis with some component of benign positional vertigo. Neurological examination is normal. Symptoms started one week after patient received flu shot, which could be contributing to this labyrinthitis function. * Anisocoria, resolved * Hypertension Plan: * Antivert 25 mg 3 times a day when necessary for vertigo * Medrol Dosepak * Start aspirin 81 mg daily. * If the symptoms persist, would recommend outpatient vestibular rehabilitation. * Suggest follow-up with ENT specialist as an outpatient to evaluate for peripheral vestibular dysfunction. * B12 529, folate 21.3 and TSH 1.36. All normal. * Neurologically clear. Thank you for the consult.
[2022-05-23] MEDS ORDERED: MECLIZINE 25 MG TAB PO PRN (12:53)
[2022-05-23] MEDS ORDERED: ACETAMINOPHEN TAB 500 MG TAB PO PRN (13:19)
--- NOTE | 2022-05-23 14:41 | P.DS ---
Providers Date of admission: 05/23/22 00:58 Expected date of discharge: 05/23/22 Attending physician: Jose Pratt MD Consults: 05/23/22 00:55 Consult Physician Urgent Consulting Provider: Gilmer Lopes Consult Reason/Comments: vertigo, pupillary abnormality Do you want consulting provider notified?: Already Contacted Primary care physician: [facility] Course: Patient is a 61-year-old female with PMH of hypertension, sleep apnea, tracheobronchomalacia presents the ED for vertigo. She was initially evaluated in the ED on May [address] was negative. She was discharged on . She returned back to the ED for recurrence of symptoms. Patient reports vertigo that has been ongoing over the past few weeks. Her vertigo has worsened with certain movement of her head. She denies any head trauma. She denies any falls. She does report double vision at times and difficulty with nighttime driving, wears glasses, last saw private chef 2 years ago. She denies any hearing loss or ringing in the ears. She denies any symptoms of viral URI. She denies any slurred speech or unilateral numbness/weakness/tingling in her extremities. She followed up with her chiropractor who noted that she had pupillary discrepancy which prompted her to come back to the ED. She did not have any manipulation of her neck down. In the ED, her vital signs are stable. CBC showed leukocytosis of 12. INR was 1. CMP showed glucose 102. Troponin was negative. Lipid panel showed total cholesterol 208 and LDL of 135.4. CTA head and neck shows diminutive A1 segment of the left GREG. Patient was admitted for further workup of symptoms. She was evaluated by neurology to attribute it her symptoms to labyrinthitis and benign positional vertigo. Neurology recommended Antivert as needed along with Medrol Dosepak and cleared the patient for discharge. Patient was able to ambulate the hallways in the ED without difficulties. Patient stated she felt comfortable going home. She does have support at home with 2 children that live with her. She also does not drive at this time due to her symptoms. She has an appointment with Dr. Earl in June. She is advised to follow-up with her PCP within 1-2 days of discharge. She is advised to attempt to get a closer appointment with ENT. She is advised to follow-up with neurology within 1 week of discharge. At this time, she would like to stay away from vestibular rehab. Pertinent studies include CT head and neck General: non toxic, no distress, appears at stated age Derm: warm, dry Head: atraumatic, normocephalic, symmetric Eyes: EOMI, no lid lag, anicteric sclera Mouth: no lip lesion, mucus membranes moist Ext: no gross muscle atrophy, no edema, no contractures Neuro: no focal neuro deficits Psych: Alert, oriented, appropriate affect Discharge diagnosis: Vertigo Leukocytosis Dyslipidemia Hypertension Sleep apnea Tracheobronchomalacia Patient Condition at Discharge: Stable Plan - Discharge Summary New Discharge Prescriptions: New Pantoprazole [Protonix] 40 mg PO AC-[facility] #30 tab methylPREDNISolone [Medrol Dose Pack] 0 mg PO DIRECTED #1 packet Meclizine [Antivert] 25 mg PO TID PRN #30 tab PRN Reason: Vertigo Aspirin 81 mg PO DAILY #30 tab Atorvastatin [Lipitor] 40 mg PO DAILY #30 tab Continue Eszopiclone [Lunesta] 3 mg PO HS Desvenlafaxine Succinate [Pristiq] 100 mg PO HS Furosemide [Lasix] 40 mg PO DAILY Potassium Chloride [K-Tab ER] 10 meq PO HS Metoprolol Tartrate [Lopressor] 25 mg PO BID #60 tab Albuterol Sulfate [Albuterol Sulfate Hfa] 2 puff PO RT-Q6H PRN PRN Reason: Shortness Of Breath Beclomethasone Dip 80 Mcg/Puff [Qvar 80 mcg] 2 puff INHALATION RT-BID Losartan Potassium [Cozaar] 100 mg PO HS Ergocalciferol [Vitamin D2 (1250 Mcg = 58541 Iu)] 1,250 mcg PO SA Discontinued Metoclopramide HCl [Reglan] 10 mg PO Q6HR PRN #15 tablet PRN Reason: Nausea Discharge Medication List Desvenlafaxine Succinate [Pristiq] 100 mg PO HS 07/26/15 [History] Eszopiclone [Lunesta] 3 mg PO HS 07/26/15 [History] Furosemide [Lasix] 40 mg PO DAILY 05/16/17 [History] Potassium Chloride [K-Tab ER] 10 meq PO HS 05/16/17 [History] Metoprolol Tartrate [Lopressor] 25 mg PO BID #60 tab 05/17/17 [Rx] Albuterol Sulfate [Albuterol Sulfate Hfa] 2 puff PO RT-Q6H PRN 05/23/22 [History] Aspirin 81 mg PO DAILY #30 tab 05/23/22 [Rx] Atorvastatin [Lipitor] 40 mg PO DAILY #30 tab 05/23/22 [Rx] Beclomethasone Dip 80 Mcg/Puff [Qvar 80 mcg] 2 puff INHALATION RT-BID 05/23/22 [History] Ergocalciferol [Vitamin D2 (1250 Mcg = 84469 Iu)] 1,250 mcg PO SA 05/23/22 [History] Losartan Potassium [Cozaar] 100 mg PO HS 05/23/22 [History] Meclizine [Antivert] 25 mg PO TID PRN #30 tab 05/23/22 [Rx] Pantoprazole [Protonix] 40 mg PO AC-BRKFST #30 tab 05/23/22 [Rx] methylPREDNISolone [Medrol Dose Pack] 0 mg PO DIRECTED #1 packet 05/23/22 [Rx] Follow up Appointment(s)/Referral(s): Oneil Mcintosh DO [Doctor of Osteopathic Medicine] - 1 Week Hair Trinh DO [Primary Care Provider] - 1-2 days Nadir Patino MD [Medical Doctor] - 1 Week Patient Instructions/Handouts: Vertigo (DC) Activity/Diet/Wound Care/Special Instructions: Diet: Low salt FU PCP within 1-2 days of DC. FU with Neurology and ENT within 1 week of DC. Discharge Disposition: HOME SELF-CARE
[2022-05-23] MEDS ORDERED: MELATONIN 5 MG TABLET PO SCH (21:00)
== END 2022-05-23 17:38 | disposition home or self-care (01) ==
LOC: EC 15:19 → 6NMEDSUR 05-23 00:58
PROVIDERS: ADMIT Internal Medicine; ATTEND Internal Medicine
DX: H21.569 Pupillary abnormality, unspecified eye (principal); H83.09 Labyrinthitis, unspecified ear; H81.10 Benign paroxysmal vertigo, unspecified ear; I11.0 Hypertensive heart disease with heart failure; I50.9 Heart failure, unspecified; M79.7 Fibromyalgia; K21.9 Gastro-esophageal reflux disease without esophagitis; D72.829 Elevated white blood cell count, unspecified; E78.5 Hyperlipidemia, unspecified; J39.8 Other specified diseases of upper respiratory tract; G47.00 Insomnia, unspecified; G47.30 Sleep apnea, unspecified; K76.0 Fatty (change of) liver, not elsewhere classified; M54.42 Lumbago with sciatica, left side; M54.41 Lumbago with sciatica, right side; F41.9 Anxiety disorder, unspecified; F32.A Depression, unspecified; Z79.82 Long term (current) use of aspirin; Z79.899 Other long term (current) drug therapy; Z90.49 Acquired absence of other specified parts of digestive tract; Z90.710 Acquired absence of both cervix and uterus; Z83.3 Family history of diabetes mellitus; Z82.49 Family history of ischemic heart disease and other diseases of the circulatory system; Z80.6 Family history of leukemia; Z80.3 Family history of malignant neoplasm of breast; Z80.0 Family history of malignant neoplasm of digestive organs
CPT/HCPCS: 96372; 96374; 99285; 36415; 93005; 80061; 80053; 84443; 82607; 82746; 84484; 85025; 85610; 70496; 70498; G0378; J3360; Q9967; J1644

== ENCOUNTER → 2024-06-22 | Outpatient (CLI) | payer BC ==
--- NOTE | 2024-06-22 11:24 | MM ---
Reason for Exam: Screening (asymptomatic). Last mammogram was performed 2 year(s) and 7 month(s) ago. Patient History: Menarche at age 13. Patient has no children. Left ovary removed at age 43. Right ovary removed at age 43. Hysterectomy at age 43. Postmenopausal. 06/10/2001, Benign Excisional Biopsy on the right side. Maternal cousin had breast cancer, age 40. Maternal aunt had breast cancer under age 50. Sister had breast cancer, age 40. Mother had breast cancer, bilateral, age 40. Risk Values: Siena 5 year model risk: 6.4%. NCI Lifetime model risk: 24.7%. Prior Study Comparison: 10/19/2014 Bilateral Screening Mammogram, [facility]. 07/07/2017 Bilateral Screening Mammogram, [facility]. 11/08/2021 Bilateral MG 3D screening mammo w/cad, [facility]. Tissue Density: There are scattered areas of fibroglandular density. Findings: Analyzed By CAD. The pattern is symmetrical. No significant interval change. No suspicious groups of microcalcifications, spiculated or lobular masses, architectural distortion or other secondary signs of malignancy are mammographically apparent. Overall Assessment: Benign, BI-RAD 2 Management: Screening Mammogram of both breasts in 1 year. A negative mammogram report should not preclude additional follow up of suspicious palpable abnormalities. Patient should continue monthly self breast exam. A clinical breast exam by your physician is recommended on an annual basis and results should be correlated with mammographic findings. Note on Siena scores and lifetime risk: 1. A Siena score greater than 3% is considered moderate risk. If this is the case, consider specialist referral to assess eligibility for a risk reducing agent. 2. If overall lifetime risk for the development of breast cancer is 20% or higher, the patient may qualify for future screening with alternating mammogram and breast MRI. [facility], , 06/22/2024 11:22 AM. Electronically signed and approved by: Dominick Monreal D.O. Radiologis
== END | disposition home or self-care (01) ==
LOC: RADMAMWWP 08:40
PROVIDERS: ATTEND Family Medicine
DX: Z12.31 Encounter for screening mammogram for malignant neoplasm of breast (principal); R92.323 Mammographic fibroglandular density, bilateral breasts; Z78.0 Asymptomatic menopausal state; Z80.3 Family history of malignant neoplasm of breast; Z90.722 Acquired absence of ovaries, bilateral
CPT/HCPCS: 77063; 77067